=== PATIENT | female | born 1955 | race Caucasian/White ===

== ENCOUNTER 2017-02-06 15:38 | Emergency (ER) | payer MEDICAID ==
[~2017-02-06] VITALS: Ht 162.6 cm; Wt 92.0 kg
[2017-02-06] MEDS ORDERED: SODIUM CHLORIDE FLUSH 10ML SYR IVF ONE (16:30)
[2017-02-06 16:37] LABS: BLOOD UREA NITROGEN 15 mg/dL (7-18)
[2017-02-06] MEDS ORDERED: IPRATROPIUM 0.5 MG/2.5 ML INHA ONE (16:42)
[2017-02-06 16:43] LABS: IS PT STATUS REG ER OR PRE ER? YES
[2017-02-06 17:27] VITALS: BP 156/74
== END 2017-02-06 17:49 | disposition home or self-care (01) ==
LOC: ED 17:43
DX: J44.1 Chronic obstructive pulmonary disease with (acute) exacerbation (principal); J20.9 Acute bronchitis, unspecified; Z87.891 Personal history of nicotine dependence
CPT/HCPCS: 36415; 71010; 80048; 82040; 84484; 85025; 93005; 99285; J7512